=== PATIENT | male | born 1975 | race Hispanic/Latino ===

== ENCOUNTER 2018-04-01 18:36 | Inpatient (IN) | payer SELFPAY ==
[2018-04-01] MEDS ORDERED: Morphine 10 MG/ML VIAL ONE (19:21)
--- NOTE | 2018-04-01 19:39 | RAD ---
RIGHT FORELEG FOUR VIEWS: INDICATIONS: Injury at work with right leg pain. FINDINGS: There is a mildly displaced spiral fracture involving the proximal fibula shaft, with a distal fractu re fragment displaced anteriorly and laterally one cortex width. There is a mildly displaced posteri or malleolar fracture. There is suspicion for a small ossific capsular avulsion fracture from the an terior aspect of the distal tibia. IMPRESSION: 1. Mildly displaced spiral fracture of the proximal fibula shaft. 2. Small capsular avulsion fracture of the anterior distal tibial plafond. 3. Mildly displaced posterior malleolar right ankle fracture. Dedicated three views of the right an kle are recommended for further evaluation. POS: [facility]
[2018-04-01 20:00] LABS: #Basophils 0.1 thou/uL (0.0-0.2); #Lymphocytes 2.3 thou/uL (1.20-3.40); #Monocytes 0.7 thou/uL (0.11-0.59); #Neutrophils 10.8 thou/uL (1.40-6.50); %Basophils 0.7 % (0.0-1.0); %Eosinophils 0.3 % (0.0-10.0); %Lymphocytes 16.4 % (21.0-51.0); %Monocytes 5.2 % (0.0-10.0); %Neutrophils 77.5 % (42.0-75.0); Hemoglobin 16.3 g/dL (14.0-18.0); Mean Corpuscular HGB CONC 34.4 g/dL (32.0-36.0); Mean Corpuscular Hemoglobin 32.9 pg (27.0-31.0); Mean Corpuscular Volume 95.6 fL (78.0-98.0); Platelet Count 250 thou/uL (130-400); RBC Distribution Width 12.3 % (11.5-14.5); Red Blood Cell (RBC) Count 4.94 mill/uL (4.70-6.10)
[2018-04-01 20:17] LABS: ALT (SGPT) 54 U/L (8-55); AST (SGOT) 25 U/L (5-34); Alkaline Phosphatase 94 U/L (40-150); Anion Gap 13 mmol/L (10-20); BUN (Urea Nitrogen) 12 mg/dL (8.9-20.6); Bilirubin, Total 0.3 mg/dL (0.2-1.2); Calc. Creatinine Clearance 0 mL/min (70-130); Carbon Dioxide 21 mmol/L (22-29); Chloride 107 mmol/L (98-107); Estimated GFR-MDRD Greater than 90; Globulin 3.8 g/dL (2.4-3.5); Glucose 102 mg/dL (70-105); Potassium 4.6 mmol/L (3.5-5.1); Protein, Total 7.8 g/dL (6.0-8.3); Sodium 136 mmol/L (136-145)
--- NOTE | 2018-04-01 20:28 | RAD ---
AP VIEW CHEST: HISTORY: Preoperative chest radiograph. FINDINGS: AP view chest demonstrates the lungs to be well aerated. No evidence of active intrathoracic disease is seen. No evidence of effusions, pneumonia, or pneumothorax is seen. IMPRESSION: Unremarkable anterior-posterior view chest. POS: [facility]
[2018-04-01] MEDS ORDERED: Acetaminophen 500 MG TAB ONE (20:47)
[2018-04-01] MEDS ORDERED: Ketorolac Tromethamine 30 MG/ML VIAL ONE (20:48)
[2018-04-01] MEDS ORDERED: Ondansetron ODT 4 MG TAB PO PRN (20:50)
[2018-04-01] MEDS ORDERED: Dextrose 50% Abboject 50 ML SYRINGE SLOW IVP PRN (20:50)
[2018-04-01] MEDS ORDERED: Ondansetron PF 4 MG/2 ML Vial IVP PRN (20:50)
[2018-04-01] MEDS ORDERED: Dextrose 5% in Water 1,000 ML IV PRN (20:50)
[2018-04-01] MEDS ORDERED: traMADol HCl 50 MG TAB PO PRN (20:50)
[2018-04-01] MEDS ORDERED: Morphine 2 MG/ML SYRINGE SLOW IVP PRN (20:50)
[2018-04-01] MEDS: traMADol HCl 50 MG TAB PO SCH (23:05)
[2018-04-01] MEDS: Sodium Chloride 0.9% 1,000 ML IV SCH (23:05)
[2018-04-01] MEDS ORDERED: Ketorolac Tromethamine 30 MG/ML VIAL IVP SCH (23:59)
[2018-04-02 01:55] VITALS: BMI 34.9
[2018-04-02] MEDS: Ketorolac Tromethamine 30 MG/ML VIAL IVP SCH ×3 (03:51→15:41)
[2018-04-02] MEDS: traMADol HCl 50 MG TAB PO SCH ×3 (04:38→15:40)
[2018-04-02] MEDS: Acetaminophen 500 MG TAB PO SCH ×2 (05:01→12:39)
[2018-04-02 05:22] LABS: INR-International Normal Ratio 1.1; PTT 28.3 SEC (22.9-36.1); Prothrombin Time 14.4 SEC (12.0-14.7)
[2018-04-02 05:26] LABS: #Basophils 0.1 thou/uL (0.0-0.2); #Eosinphils 0.2 thou/uL (0.0-0.7); #Lymphocytes 4.2 thou/uL (1.20-3.40); %Basophils 0.9 % (0.0-1.0); %Eosinophils 1.9 % (0.0-10.0); %Lymphocytes 44.1 % (21.0-51.0); %Monocytes 10.4 % (0.0-10.0); %Neutrophils 42.7 % (42.0-75.0); Hemoglobin 14.2 g/dL (14.0-18.0); Mean Corpuscular HGB CONC 33.8 g/dL (32.0-36.0); Mean Corpuscular Hemoglobin 32.3 pg (27.0-31.0); Mean Corpuscular Volume 95.5 fL (78.0-98.0); Mean Platelet Volume 8.2 fL (7.4-10.4); Platelet Count 228 thou/uL (130-400); RBC Distribution Width 12.4 % (11.5-14.5); White Blood Cell (WBC) Count 9.4 thou/uL (4.8-10.8)
[2018-04-02 05:34] LABS: Anion Gap 11 mmol/L (10-20); BUN (Urea Nitrogen) 13 mg/dL (8.9-20.6); Calc. Creatinine Clearance 175 mL/min (70-130); Calcium 8.3 mg/dL (7.8-10.44); Carbon Dioxide 25 mmol/L (22-29); Chloride 108 mmol/L (98-107); Estimated GFR-MDRD Greater than 90; Glucose 100 mg/dL (70-105); Phosphorus 4.8 mg/dL (2.3-4.7); Potassium 3.9 mmol/L (3.5-5.1); Sodium 140 mmol/L (136-145)
[2018-04-02] MEDS ORDERED: CEFAZOLIN 2 GM/50 ML BAG IVPB SCH (07:15)
--- NOTE | 2018-04-02 07:59 | HP ---
DATE OF ADMISSION: 04/01/2018 HISTORY OF PRESENT ILLNESS: Enmanuel Daniel is a 42-year-old male, who presented to [facility] status post mechanical fall. 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 He had immediate onset of right lower extremity pain. He was seen and evaluated in the emergency room and found to have an isolated lower extremity fracture. Orthope dic Surgery was notified and Trauma Service was asked to admit. Upon my evaluation, the patient has a chief complaint of 8/10 somewhat throbbing right lower extremity pain, worsening with movement and manipulation, relieved with pain medication. He vocalized no other complaints, consciousness. ALLERGIES: ASPIRIN - swelling. PAST MEDICAL HISTORY: The patient denies. HOME MEDICATIONS: The patient denies. PAST SURGICAL HISTORY: The patient denies. 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 Endorses occasional alcohol, occasional tobacc o, and occasional marijuana use. FAMILY HISTORY: Significant for father with diabetes, end-stage renal disease, and coronary artery d isease. REVIEW OF SYSTEMS: A 10-point review of systems was performed and essentially negative except as ind icated in the HPI. PHYSICAL EXAMINATION: VITAL SIGNS: Temperature 99, respirations 18, O2 sat 97% on room air, blood pressure 129/92, pulse 8 2. GENERAL: Well-developed male, in no acute distress, resting in bed. HEAD: Normocephalic, atraumatic. EYES: Pupils are PERRL. Extraocular movements are intact. NECK: Supple. Trachea is midline. There is no midline tenderness to palpation. CHEST/PULMONARY: Chest is atraumatic, nontender to palpation. Normal work of breathing, symmetric r ise. Lungs are clear to auscultation bilaterally. CARDIOVASCULAR: Regular rate and rhythm, no obvious murmurs, rubs, or gallops. GASTROINTESTINAL: Abdomen is soft, nontender, nondistended. Bowel sounds are positive. MUSCULOSKELETAL: Bilateral upper extremities within normal limits. Left lower extremity within norm al limits. Right lower extremity splint is clean, dry, and intact. He has good capillary refill and is neurovascularly intact distal to the side of his injury. NEUROLOGIC: GCS is 15. No focal deficit is noted. LABORATORY FINDINGS: WBC 14.0, hemoglobin 16.3, hematocrit 47.2, platelet count 250. Sodium 136, po tassium 4.6, chloride 107, carbon dioxide 21, BUN 12, creatinine 0.86, glucose 102, AST and ALT withi n normal limits. RADIOGRAPHIC FINDINGS: Chest x-ray was without acute cardiopulmonary process or traumatic sequelae. X-ray of the tibia and fibula was read by Radiology as having a spiral fracture of proximal fibula a nd an avulsion fracture of the anterior distal tibia. ASSESSMENT: 1. Status post mechanical fall, approximately 3-5 feet. 2. Acute traumatic pain. 3. Right tib/fib fracture. PLAN: Admit to Trauma Services. I have discussed the case with Orthopedic Surgery who was seen and evaluated the patient. They are tentatively planning for operative intervention tomorrow morning. T he patient should be n.p.o. after midnight. DVT and gastritis prophylaxis as appropriate. Periopera tive pain management with p.o. and IV analgesics. Plan of care was discussed with the patient at bed side and all questions were answered at the time of this dictation. Trauma attending has been notifi ed of admission.
--- NOTE | 2018-04-02 08:20 | CON ---
DATE OF CONSULTATION: 04/02/2018 CHIEF COMPLAINT: Right ankle pain. HISTORY OF PRESENT ILLNESS: Mr. Daniel is a 42-year-old male who was injured last night. He was atte mpting to tighten a strap on his truck when he stepped on a tightening bar. This gave way and he fel l. He twisted his ankle. He was unable to bear weight. He was taken to the emergency department. He was found to have a high fibula fracture and a posterior malleolus tibia fracture in a Maisonneuve type pattern of ankle injury. He was splinted. He has been admitted to the hospital. He is from [facility] and was here for work. PAST MEDICAL HISTORY: Negative. MEDICATIONS: Negative. PAST SURGICAL HISTORY: Negative. SOCIAL HISTORY: The patient drinks alcohol occasionally. Occasional marijuana and tobacco use. FAMILY MEDICAL HISTORY: Diabetes and end-stage renal disease. REVIEW OF SYSTEMS: Positive for right ankle pain, otherwise negative 10-point review of systems. IMAGES: X-rays of the right tibia and fibula as well as ankle demonstrate a high proximal fibular fr acture as well as a posterior malleolus fracture. There is medial soft tissue swelling. IMPRESSION: Right ankle injury with fibula fracture and posterior malleolus fracture consistent with Maisonneuve fracture. PLAN: At this point, the patient will need to go to the operating room. I have a high suspicion vilma t his syndesmosis is disrupted given the pattern of his ankle injury. We will perform a stress view x-ray in the operating room and likely need to perform stabilization of the syndesmosis with a syndes motic screw placement. I will plan for 4.0 screws, likely 2 will be needed. He is aware of risks an d benefits. He wants to proceed. He can likely be discharged to home if he is doing well postoperat ively. He is aware of postoperative recovery process including 6 weeks of limited weightbearing.
[2018-04-02] MEDS: Sodium Chloride 0.9% 1,000 ML IV SCH ×2 (09:04→12:45)
[2018-04-02] MEDS ORDERED: CEFAZOLIN 2 GM/50 ML BAG ONE (11:35)
--- NOTE | 2018-04-02 11:37 | PRG ---
DATE OF SERVICE: 04/02/2018 SUBJECTIVE: Mr. Daniel is a 42-year-old man who suffered a mechanical fall sustaining right tibia and fibular fractures. He reports adequate pain control this morning. PHYSICAL EXAMINATION: VITAL SIGNS: Currently includes blood pressure 109/75, pulse 68, respiration rate is 12, temperature 97.9 degrees Fahrenheit, oxygen saturation is 95% on room air. HEART: Reveals regular rate and rhythm. LUNGS: Clear to auscultation bilaterally. Breathing is regular and unlabored. ABDOMEN: Soft, nontender, nondistended. EXTREMITIES: Reveals 2+ radial and pedal pulses bilaterally. His right lower extremity is immobiliz ed in a RJ splint. NEUROLOGIC: The patient is certainly hemodynamically stable to proceed to surgery with orthopedics f or repair of the right tibia and fibular fractures.
[2018-04-02] MEDS ORDERED: Bupivacaine PF 0.5% 30 ML VIAL ONE (12:16)
[2018-04-02] MEDS ORDERED: Bupivacaine HCl 0.5%/Epinephrine 1:200,000/PF 30 ml Vial ONE (12:17)
[2018-04-02] MEDS ORDERED: Fentanyl 100 MCG/2 ML VIAL ONE ×3 (12:24→13:59)
[2018-04-02] MEDS ORDERED: Promethazine HCl 25 MG/ML VIAL SLOW IVP PRN (13:32)
[2018-04-02] MEDS ORDERED: Promethazine HCl 25 MG/ML VIAL IM PRN (13:32)
[2018-04-02] MEDS ORDERED: HYDROmorphone 2 MG/ML VIAL SLOW IVP PRN (13:32)
[2018-04-02] MEDS ORDERED: Meperidine HCl/PF 25 MG/ML VIAL SLOW IVP PRN (13:32)
--- NOTE | 2018-04-02 13:54 | OP ---
DATE OF PROCEDURE: 04/02/2018 OPERATION: Open reduction and internal fixation of right syndesmosis for right ankle fracture. PREOPERATIVE DIAGNOSIS: Right ankle fracture with syndesmosis disruption. POSTOPERATIVE DIAGNOSIS: Right ankle fracture with syndesmosis disruption. COMPLICATIONS: None. ESTIMATED BLOOD LOSS: Minimal. SURGEON: Juan Luis Lamar M.D. ANESTHESIA: General. IMPLANTS: Synthes 4.0 mm screws x2. INDICATIONS: Mr. Daniel is a 42-year-old male, who fractured his ankle. He had an unstable ankle fra cture with disruption of the syndesmosis. He was indicated for open reduction and fixation of the sy ndesmosis to restore stability to the ankle. Risks have been reviewed in detail. He elected to proc eed with the operation. DESCRIPTION OF OPERATION: Mr. Daniel was identified in the preoperative holding area. His correct ex tremity was marked. He was carried to the operating room. He was positioned supine. General anesth esia was induced. A multidisciplinary timeout was performed. The right lower extremity was prepped and draped in a sterile fashion. We began the procedure with intraoperative evaluation of the ankle. We performed a stress view x-ray . This was widely positive. There was significant instability of the ankle with opening of the medi al clear space and separation of the fibula and tibia. At this point, we made a small incision and p laced a reduction clamp across the tibia and fibula. We held the ankle in dorsiflexion while we sque ezed the clamp. We then proceeded to place our syndesmosis screws. We used a drill proximal to the syndesmosis and we placed a 4.0 mm screw. We then placed a second screw to reinforce this fixation. We took final images including a stress view. This was negative at this point. We thoroughly irrig ated. We closed with 2-0 Vicryl suture and blanca. A sterile dressing was applied. A splint was p laced. The patient was taken to the recovery room in good condition without complication.
--- NOTE | 2018-04-02 14:19 | RAD ---
RIGHT ANKLE THREE VIEWS: History: 42-year-old male history ORIF right ankle. FINDINGS: Two internal fixation screws transfix the distal tibia/fibular metaphysis region. Minimally displaced posterior malleolar fracture. Possible small fracture off the medial malleolus. No significant malal ignment. IMPRESSION: Status post ORIF right ankle. POS: [facility]
[2018-04-02 14:51] VITALS: BP 121/76; TEMP 98
[2018-04-02] MEDS ORDERED: PROPOFOL 200 MG/20 ML VIAL ONE (16:24)
[2018-04-02] MEDS ORDERED: Dexamethasone 20 MG/5 ML VIAL ONE (16:24)
[2018-04-02] MEDS ORDERED: Ondansetron PF 4 MG/2 ML Vial ONE (16:24)
[2018-04-02] MEDS ORDERED: Lidocaine 1% PF 5 ML VIAL ONE (16:24)
--- NOTE | 2018-04-04 07:50 | DIS-2 ---
DATE OF ADMISSION: 04/01/2018 DATE OF DISCHARGE: 04/02/2018 RESIDENT: Gema Hudson M.D. ATTENDING: Dr. Hung. CONSULTS: Orthopedic surgery, physical therapy, case management. PROCEDURES: On 04/02/2018, open reduction and internal fixation of right syndesmosis for right ankle fracture. PRIMARY DIAGNOSIS: Right ankle fracture. SECONDARY DIAGNOSIS: None. DISCHARGE MEDICATIONS: Tylenol with codeine 1-2 tablets oral every 6 hours as needed. Other discharge medications written by Dr. Juan Luis Lamar of Orthopedic Surgery. DISCONTINUED MEDICATIONS: None. HISTORY OF PRESENT ILLNESS AND HOSPITAL COURSE: This is a 42-year-old male who came to the emergency room status post mechanical fall. 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 The patient noted pain on the right lower extremity. He was found to have a right ankle fracture. Orthopedic Surgery was notified and evaluated the patient. The patient was taken to the OR on 04/02/2018 for fixation of the right ankle fracture with no complications. Postoperatively, the patient was seen by Physical Therapy. Incentive spirometry and pulmonary toileting encouraged. The patient tolerated the procedure well and had adequate pain control. On the day of discharge, the patient was seen by Dr. Hung and the plan was discussed with the patient. The patient will follow up with Dr. Lmaar post-discharge. DISPOSITION: Stable. DISCHARGE INSTRUCTIONS: 1. Location: Home. 2. Diet: Regular. 3. Activity: Ad klever, using crutches, nonweightbearing on the right lower extremity. 4. Follow up with Dr. Lamar within 2 weeks. [facility]
--- NOTE | 2018-04-05 17:50 | EKG ---
Test Reason : Blood Pressure : / mmHG Vent. Rate : 080 BPM Atrial Rate : 080 BPM P-R Int : 140 ms QRS Dur : 088 ms QT Int : 354 ms P-R-T Axes : 040 -11 018 degrees QTc Int : 408 ms Normal sinus rhythm with sinus arrhythmia Normal ECG Confirmed by SHAYAN GAINES ([id number]), supervising editor news reel LILA FARRELL ([id number]) on 04/05/2018 5:49:05 PM Referred By: Confirmed By:SHAYAN GAINES
== END 2018-04-02 17:20 | disposition home or self-care (01) | DRG 494 ==
LOC: ERS 18:36 → SJJU 19:43 → SURG B 04-02 12:32
PROVIDERS: ADMIT Surgery; ATTEND Surgery
PROC: 0SSF04Z Reposition Right Ankle Joint with Internal Fixation Device, Open Approach (ICD-10-PCS; principal; 2018-04-02)
DX: S82.861A Displaced Maisonneuve's fracture of right leg, initial encounter for closed fracture (principal); S82.441A Displaced spiral fracture of shaft of right fibula, initial encounter for closed fracture; S93.431A Sprain of tibiofibular ligament of right ankle, initial encounter; Z72.0 Tobacco use; Z88.6 Allergy status to analgesic agent; W01.0XXA Fall on same level from slipping, tripping and stumbling without subsequent striking against object, initial encounter; Y92.89 Other specified places as the place of occurrence of the external cause; Y99.0 Civilian activity done for income or pay
CPT/HCPCS: 27780; 27824; 36415; 71045; 76000; 80048; 80053; 83735; 84100; 85025; 85610; 85730; 93005; 96361; 96372; 96374; C1713; G8978-GP-CJ; G8979-GP-CI; J0131; J0670; J1100; J1885; J2001; J2270; J2405; J2704; J3010; S0020